=== PATIENT | female | born 1985 | race Caucasian/White ===

== ENCOUNTER 2017-04-07 20:10 | Inpatient (IN) | payer OTHER ==
[2017-04-07 22:02] VITALS: BMI 39.6
[2017-04-07] MEDS ORDERED: DINOPROSTONE 10 MG VAGINAL SUPPOSITORY VG ONE (22:18)
[2017-04-07] MEDS ORDERED: PROMETHAZINE HCL 25 MG/1 ML VIAL IVPUSH ONE (22:18)
[2017-04-07] MEDS ORDERED: BUTORPHANOL TARTRATE 1 MG/ML VIAL IVPB ONE (22:18)
--- NOTE | 2017-04-07 22:18 | HP ---
Admitting History and Physical - Admission Chief Complaint: postdates induction History of Present Illness: 31 y/o primip at 40 plus weeks, incuction. Pt had a sono on wednesday with efw at 4300 grams. 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: No: Alzheimer's, CVA, Dementia, Migraine, Multiple Sclerosis, Peripheral Neuropathy, Parkinson's, Seizure, Syncope, TIA, Vertigo, Other Cardiovascular: No: AFIB, Aneurysm, Aortic Insufficiency, Aortic Stenosis, CAD, CHF, Deep Vein Thrombosis, HTN, Hyperlipdemia, [place], Mitral Insufficiency, Mitral Stenosis, Murmur, Pulmonary Hypertension, Other Pulmonary: No: Asthma, Bronchitis, Cancer, COPD, O2 Dependent, Pneumonia, Previously Intubated, Pulmonary Embolus, Pulmonary Fibrosis, Sleep Apnea, Other Gastrointestinal: No: Ascites, Cancer, Constipation, Crohn's Disease, Diverticulitis, Diverticulosis, Esophageal Varices, Gastritis, GERD, GI Bleed, Hemorrhoids, Hiatal Hernia, Inflamatory Bowel Disease, Irritable Bowel Disease, Pancreatitis, Peptic Ulcer Disease, Ulcerative Colitis, Other Hepatobiliary: No: Cirrhosis, Cholelithiasis, Cholecystitis, Choledocholithiasis , Hepatitis A, Hepatitis B, Hepatitis C, Other Renal/: No: Renal Failure, Renal Inusuff, BPH, Cancer, Hematuria, Hemodialysis , Neurogenic Bladder, Renal Calculi, UTI, Other Reproductive: No: Ectopic , Endometriosis, Fibroids, PID, Polycystic Ovary Syndrome, Postmenopausal, Other ...: 2 ...Para: 0 Infectious Disease: No: AIDS, C-Diff, Herpes Zoster, HIV, MRSA, STD's, Tuberculosis, VREF, Other Psych: No: Addictions, Anxiety, Bipolar, Depression, Panic, Psychosis, Schizophrenia, Other Rheumatology: No: Fibromyalgia, Gout, Lupus, Rheumatoid Arthritis, Sarcoidosis, Vasculitis, Other Dermatology: No: Basal Cell, Cellulitis, Eczema, Melanoma, Psoriasis, Squamous Cell, Other - Past Surgical History Past Surgical History: No: None, AAA Repair, AICD, Amputation, Appendectomy, Arthrosocopy, AV Fistula/Graft, Bariatric Surgery, Breast Biopsy, Bypass, CABG, Carotid Endarterectomy, Cataract Removal, Cholecystectomy, Colectomy, Colonoscopy, Colostomy, Craniotomy, , Cystectomy, Hernia Repair, Hysterectomy, Ileal Conduit, Ileosotomy, Joint Replacement, Kidney Transplant, Laminectomy, Liver Transplant, Mastectomy, Nephrectomy, Oopherectomy, Orchiectomy, Permanent Pacemaker, Prostatectomy, Splenectomy, Stent, Thoracotomy , TURP, Tonsillectomy, Tubal Ligation, Upper Endoscopy, Valve Replacement, Vasectomy, Vein Stripping/Ligation - Alcohol/Substance Use Hx Alcohol Use: No Review of Systems - Review of Systems Constitutional: reports: No Symptoms Eyes: reports: No Symptoms HENT: reports: No Symptoms Neck: reports: No Symptoms Cardiovascular: reports: No Symptoms Respiratory: reports: No Symptoms Gastrointestinal: reports: No Symptoms, Dysphagia Genitourinary: reports: No Symptoms Breasts: reports: No Symptoms Reported Musculoskeletal: reports: No Symptoms Integumentary: reports: No Symptoms Neurological: reports: No Symptoms Physical Examination Constitutional: Yes: Well Nourished Eyes: Yes: WNL HENT: Yes: WNL Neck: Yes: WNL Cardiovascular: Yes: WNL Respiratory: Yes: WNL Gastrointestinal: Yes: WNL ...Rectal Exam: Yes: WNL Renal/: Yes: WNL (exam is 1cm, -3, 50) Breast(s): Yes: WNL Musculoskeletal: Yes: WNL Extremities: Yes: WNL Integumentary: Yes: WNL Assessment/Plan as asdbove admit labs conseled on CS cervidiil
[2017-04-07] MEDS ORDERED: DEXTROSE 5%-LACTATED RINGERS 1,000 ML IV SCH (22:30)
--- NOTE | 2017-04-07 22:32 | PN ---
Progress Note (short form) - Note Progress Note: cerv placed at 1020p post fornix cat1 150
[2017-04-07 23:03] LABS: BASOPHIL 0.4 % (0-2.0); EOSINOPHIL 0.3 % (0-4.5); MCH 27.4 pg (25.7-33.7); MCHC 32.8 g/dl (32.0-36.0); MEAN CELL VOLUME 83.6 fl (80-96); MEAN PLT VOLUME 10.2 fl (7.5-11.1); PLATELET COUNT 154 K/MM3 (134-434); RDW 14.7 % (11.6-15.6); WHITE BLOOD COUNT 8.1 K/mm3 (4.0-10.0)
[2017-04-07 23:16] LABS: INR 1.02 (0.82-1.09); PROTHROMBIN TIME (PATIENT) 11.2 SEC (9.98-11.88)
[2017-04-07 23:18] LABS: ACTIVATED PTT 29.2 SECONDS (26.9-34.4)
[2017-04-07 23:37] LABS: CALCIUM 8.4 mg/dL (8.5-10.1); COCKROFT - GAULT 266.05; CREATININE 0.5 mg/dL (0.55-1.02)
--- NOTE | 2017-04-08 06:42 | PN ---
Progress Note (short form) - Note Progress Note: still with cervidil, cat one tracing, some crampiness, no lof
[2017-04-08] MEDS ORDERED: SODIUM PHOSPHATE/NA BIPHOS 133 ML ENEMA PR ONE (08:36)
--- NOTE | 2017-04-08 08:48 | PN ---
Progress Note (short form) - Note Progress Note: 31 yrs , 40.5 weeks s/p cervidil induction started by Dr Medeiros at 10.20 pm 04/07/17 FHR tracing cat-1 uc irrehular 8.30 am exam 2 cm/100% /Vx /-2/ pelvis adequate .EFW 4300gm. Selected Entries 04/08/17 08:00 Temperature 98.0 F Pulse Rate 90 Blood Pressure 122/60 Laboratory Tests 04/07/17 04/07/17 04/07/17 22:45 22:45 22:45 WBC 8.1 Hgb 10.6 L Hct 32.5 Plt Count 154 Neutrophils % 70.0 Lymphocytes % 22.7 Monocytes % 6.6 INR 1.02 PTT (Actin FS) 29.2 Sodium 141 Potassium 3.9 Chloride 106 Carbon Dioxide 20 L Creatinine 0.5 L Random Glucose 98 Blood Type 04/07/17 22:45 WBC Hgb Hct Plt Count Neutrophils % Lymphocytes % Monocytes % INR PTT (Actin FS) Sodium Potassium Chloride Carbon Dioxide Creatinine Random Glucose Blood Type A POSITIVE Plan fleets enema, shower remove cervidil at 10.20 am . stadol for labor analgesia ct trial of labor for vaginal delivery
--- NOTE | 2017-04-08 10:40 | PN ---
Progress Note, Labor Vaginal Exam #1 Labor Exam Date: 04/08/17 Labor Exam Time: 10:30 Heart Rate (range): 130-140 Dilatation: 4-5 Effacement (%): 100 Amniotic Membrane Status: Intact (not sure) Presentation: Vertex/Position Station: -2 Remarks: fhr cat-1. uc are mild, irregular. stadol 2 mg iv given at 10.00am cervidil fell off as per pt at 10.00Am Selected Entries 04/08/17 10:00 Temperature 98.0 F Pulse Rate 89 Blood Pressure 121/67 Vaginal Exam #2 Labor Exam Date: 04/08/17 Labor Exam Time: 11:50 Heart Rate (range): 130-140 Dilatation: 6-7 Effacement (%): 100 Amniotic Membrane Status: Ruptured Presentation: Vertex/Position (caput) Station: -2 (-2/-1) Remarks: uc are irregular , mild q 2-4 min , fhr cat-1. pt c/o pressure all the time pitocin started at 11.30 am plan epidural Selected Entries 04/08/17 11:00 Pulse Rate 86 Blood Pressure 123/60 Vaginal Exam #3 Labor Exam Date: 04/08/17 Labor Exam Time: 14:00 Heart Rate (range): 124 Dilatation: 7 Effacement (%): 100 Amniotic Membrane Status: Ruptured Presentation: Vertex/Position (caput is noted, ant lip cx is slightly edematous) Station: -1 Remarks: UC q 2-3 min. FHR cat-1 . pt c/o pressure pain plan epidural top off Selected Entries 04/08/17 14:15 Pulse Rate 82 Blood Pressure 128/78 Vaginal Exam #4 Labor Exam Date: 04/08/17 Labor Exam Time: 16:25 Heart Rate (range): 120-130 Dilatation: 7 Effacement (%): 90 Amniotic Membrane Status: Ruptured Presentation: Vertex/Position Station: -1 Remarks: FHR CAT-1 UC Q 2-4 min mild scalp electrode application Selected Entries 04/08/17 16:00 Pulse Rate 60 Blood Pressure 111/54 Vaginal Exam #5 Labor Exam Date: 04/08/17 Labor Exam Time: 18:30 Heart Rate (range): 140-160 Dilatation: 8 Effacement (%): 100 Amniotic Membrane Status: Ruptured Presentation: Vertex/Position (caput, cx is partially edematous) Station: +1 Remarks: fhr cat-1 UC 2-4 min irregular requests for Top off Selected Entries 04/08/17 04/08/17 04/08/17 18:00 18:15 18:37 Temperature 98.4 F Pulse Rate 82 78 Blood Pressure 124/81 126/72 Vaginal Exam #6 Labor Exam Date: 04/08/17 Labor Exam Time: 20:00 Heart Rate (range): 150 Dilatation: 8 Effacement (%): 100 Amniotic Membrane Status: Ruptured Presentation: Vertex/Position (caput, cx more edematous) Station: +1 Remarks: uc 2-4 min FHR at 740 pm & 7.50 pm late decelration are noted , FHR cat-2 cx is still 8 cm dilatation . Between 2.00pm & 8. pm she kramer dilated from 7 cm to 8cm only , cx is becoming edematous caput is large Imp : Failure to progress in labor, 41 weeks, suspected Macrosomia Plan : stop pitocin delivery by primary C/section
[2017-04-08] MEDS ORDERED: OXYTOCIN 15 UNITS/ LR 250 ML 250 ML IVPB SCH (10:45)
[2017-04-08] MEDS ORDERED: ELECTROLYTE-148 SOLN 1,000 ML IV SCH ×2 (12:00→22:30)
[2017-04-08] MEDS ORDERED: oxyCODONE HCL 5 MG TABLET PO PRN (12:00)
[2017-04-08] MEDS ORDERED: FENTANYL/BUPIVACAINE/NS/PF - PCEA - 50 ML DISP.SYRIN EP SCH (19:00)
[2017-04-08] MEDS ORDERED: CITRIC ACID/SODIUM CITRATE 30 ML UNIT-DOSE CUP PO ONE (20:21)
[2017-04-08] MEDS ORDERED: ELECTROLYTE-148 SOLN 500 ML IV ONE (21:00)
[2017-04-08] MEDS ORDERED: IBUPROFEN 800 MG/8 ML IJ IVPB PRN ×2 (21:55→22:08)
[2017-04-08] MEDS ORDERED: METHYLERGONOVINE MALEATE 0.2 MG/1 ML AMP IM PRN (21:55)
[2017-04-08] MEDS ORDERED: D5W-LR W/ 20 UNITS OXYTOCIN 1,000 ML IV SCH (22:00)
[2017-04-08] MEDS ORDERED: ONDANSETRON 4 MG/2 ML VIAL IVPUSH PRN (22:09)
[2017-04-08 22:25] LABS: ARTERIAL BLD GAS O2 SATURATION 12.9 % (90-98.9); ARTERIAL BLOOD GAS BASE EXCESS -3.4 meq/l (-2-2); ARTERIAL BLOOD GAS HCO3 23.2 meq/L (22-26)
[2017-04-08 22:28] LABS: VENOUS PH 7.35 (7.32-7.42)
--- NOTE | 2017-04-08 22:28 | OP ---
Operative Note - Note: Operative Date: 04/08/17 Pre-Operative Diagnosis: 41 weeks, failure to progressin labor, Macrosomia Operation: Primary LFTC/Section Findings: 04/08/17 baby boy, at 9.16pm, 9/9, Op position, Wt 10'6" Kiwi vaccum cup applied to cephalic to pull baby out uterine culture taken Both tubes & ovaries normal Dr Ramirez present in the room Surgeon: Angeli Allred Nipping Machine Operator: Trevor Franco Anesthesiologist/SUGAR CONTROLLER: Kostas Vasques Anesthesia: Epidural Specimens Removed: cord segment for blood gas. cord blood. placenta. utrine culture Estimated Blood Loss (mls): 1,000 Drains, Volume Out (mls): 150 Fluid Volume Replaced (mls): 1,600 (2 gm IV Ancef prior to incision ) Operative Report Dictated: Yes
[2017-04-08 22:30] LABS: ART PUNCT SITE OTHER; ARTERIAL BLOOD GAS PO2 12.7 mmHg (80-100); LPM/O2% 21%; PT. ON O2? no; TYPE OF O2 room air
--- NOTE | 2017-04-08 22:41 | PN ---
Delivery - Delivery Section: Primary, Low Flap Transverse (indication: 41 weeks, failure to progress in Labor , macrosomia) Type of Anesthesia: Epidural EBL (cc): 1,000 (nelson output 150 ml, jeffrey color ) Delivery, Single - Stages of Labor Date 1st Stage Initiatied: 04/08/17 Time 1st Stage Initiated: 08:30 Date of Delivery: 04/08/17 Time of Delivery: 21:16 Date Placenta Delivered: 04/08/17 Time Placenta Delivered: 21:18 Placenta: Yes: Manual Removal (uterine culture taken), Uterine Exploration - Condition of Housekeeping Director/Filing Clerk Present: Yes Name: Dalton Ramirez Gender: Male Position: OP (kiwi vaccum cup applied to assist delivery) Total Hours ROM (Hrs/Mins): 9hr-38 min - 1 Minute Total Score: 9 5 Minutes Total Score: 9 - [place] Feeding Plan Initial Plan: Elected not to breastfeed exclusively throughout hospitalization Remarks - Remarks Remarks: 31 yrs , 41 weeks, admitted by Dr Medeiros on 04/07/17 cervidil induction started . sono 4300 gm efw GBS neg . care at [address] [place] [address] . 04/08/17 Pitocin induction started IVstadol followed by epidural labor analgesia was started Protracted active phase of labor , failure to progress in labor . intraop course uneventful 2 gm Iv ancef prior to incision was given
--- NOTE | 2017-04-09 01:40 | OP ---
DATE OF OPERATION: 04/08/2017 PREOPERATIVE DIAGNOSIS: 41 week , failure to progress in labor, macrosomia. POSTOPERATIVE DIAGNOSIS: 41 week , failure to progress in labor, macrosomia. PROCEDURE: Primary low transverse section. SURGEON: Angeli Allred MD PUMP SERVICER: Trevor Franco MD ANESTHESIOLOGIST: Kostas Vasques MD ANESTHESIA: Epidural. FINDINGS: This is a 31-year-old, 2, para 0-0-1-0, who was admitted on April 07 Cevidil induction followed by Pitocin induction was done. Patient progressed to 8 cm, but she had dilated from 7 to 8 cm in 6 hours. Station was +1 with a large caput. Cervix was getting edematous, so protracted active phase of labor was diagnosed and also late decelerations were noted. It was decided to deliver the patient by section. Estimated weight by ultrasound was 4300 g. PROCEDURE: Patient is taken to the operating room table were epidural anesthesia was reinforced and the patient was placed in the supine position. Cary catheter was inserted. SCD stockings were inflated. The abdomen was prepped with DuraPrep and draped in the usual manner. Level of anesthesia was checked and Pfannenstiel incision was made. The skin and subcutaneous tissues as well as the anterior rectus sheath were incised transversely. Bleeding points were clamped and cauterized. The lower part of the peritoneum was opened vertically. The lower flap of the peritoneum was identified and it was incised transversely. The lower uterine segment was isolated and the bladder was pushed down. The baby was delivered at 9:16 p.m. with some difficulty in getting the baby out. A Kiwi vacuum cup was applied. With suction, the baby's head was delivered out of the incision and the rest of the body was delivered. The baby was in the OP position. Baby Boy, 9/9, Wt 10'6" Cord was clamped and cut. Cord blood was collected. Also, the cord segment was sent for the blood gasses. Uterine culture was taken. Placenta was removed completely with membranes. Uterine cavity was cleaned. The uterine incision was closed with 0 Biosyn suture, continuous locking sutures were taken. The 2nd layer of the uterine closure was done with continuous intermittently locking suture with Biosyn 0 suture. Hemostasis was checked. The bladder peritoneum was also closed with Biosyn 0 suture. Hemostasis was verified once again. Both the tubes and ovaries were normal. Irrigation was done. The sponge, instrument, and needle counts were correct. The closure of the abdomen was done. The peritoneum was closed with Vicryl suture. The muscles were reapproximated together with 0 Vicryl sutures. Interrupted sutures were taken below the rectus sheath. Hemostasis was checked and the rectus sheath was closed with 0 Vicryl continuous sutures. These were checked and the subcutaneous tissues were approximated with Biosyn 0 suture. The skin was approximated with ayleen. Pressure dressing was given. Blood clots were removed from the vagina. Betadine was used in the vagina. Patient tolerated the procedure well and she was transferred to the recovery room in stable condition. Estimated blood loss was 1000 mL. Intraoperative urine output was 150 mL and jeffrey colored. She received 2 g of IV Ancef prior to the incision. Warehouse Distribution Associate Dr Ramirez was present in the room. Elda DE LA [id number] MTDD
[2017-04-09] MEDS: CEFAZOLIN (PRE-DOCKED) 50 ML IVPB SCH ×3 (02:42→18:14)
--- NOTE | 2017-04-09 08:12 | PN ---
Progress Note (short form) - Note Progress Note: pod 1 doing well, no c/o , CBC, BMP 04/07/17 22:45 04/07/17 22:45 Last Vital Signs Temp Pulse Resp BP Pulse Ox 98.1 F 112 H 18 117/65 99 04/09/17 06:34 04/09/17 06:34 04/09/17 06:34 04/09/17 06:34 04/08/17 23:15 abdomen soft, no distension, no cva incision dry, clean no excess vaginal bleeding impression pod 1, mild tachycardia , r/o anemia, r/o sepsis plan cbc , ambualte, cont iv hydration , revaluate
[2017-04-09 08:46] LABS: BASOPHIL 0.3 % (0-2.0); MCH 27.4 pg (25.7-33.7); MCHC 32.5 g/dl (32.0-36.0); MEAN CELL VOLUME 84.3 fl (80-96); MEAN PLT VOLUME 9.7 fl (7.5-11.1); NEUTROPHILS 82.1 % (42.8-82.8); PLATELET COUNT 138 K/MM3 (134-434); RDW 14.4 % (11.6-15.6); WHITE BLOOD COUNT 14.2 K/mm3 (4.0-10.0)
[2017-04-09] MEDS: ENOXAPARIN NA (PORCINE) 40 MG/0.4 ML DISP.SYRIN SQ SCH (10:27)
[2017-04-09] MEDS: IBUPROFEN 600 MG TABLET (FP) PO PRN ×2 (12:22→21:17)
[2017-04-09] MEDS: SIMETHICONE 80 MG TAB.CHEW (FP) PO PRN ×2 (12:22→21:16)
[2017-04-09] MEDS: ACETAMINOPHEN 325 MG TABLET (FP) PO PRN ×2 (12:23→21:16)
[2017-04-09] MEDS: SENNOSIDES/DOCUSATE COMBO (SENNA PLUS) TABLET (UD) PO PRN (21:15)
[2017-04-09] MEDS: FERROUS SO4 325 MG TABLET (FP) PO SCH (21:19)
[2017-04-09] MEDS ORDERED: BISACODYL 10 MG SUPP.RECT RC PRN (21:56)
[2017-04-10] MEDS: SIMETHICONE 80 MG TAB.CHEW (FP) PO PRN ×3 (10:14→23:40)
[2017-04-10] MEDS: IBUPROFEN 600 MG TABLET (FP) PO PRN ×3 (10:14→23:40)
[2017-04-10] MEDS: FERROUS SO4 325 MG TABLET (FP) PO SCH ×2 (10:14→21:39)
[2017-04-10] MEDS: PRENATAL VITAMINS W/ FOLIC ACID TABLET (FP) PO SCH (10:14)
[2017-04-10] MEDS: ACETAMINOPHEN 325 MG TABLET (FP) PO PRN (10:15)
[2017-04-10] MEDS: ENOXAPARIN NA (PORCINE) 40 MG/0.4 ML DISP.SYRIN SQ SCH (10:16)
--- NOTE | 2017-04-10 13:53 | PN ---
Post Progress Note - Subjective Subjective: no complains Post Day: 2 Type of Delivery: Primary C/S Vital Signs: Vital Signs Temperature 98.0 F 04/10/17 09:47 Pulse Rate 96 H 04/10/17 09:47 Respiratory Rate 18 04/10/17 09:47 Blood Pressure 121/80 04/10/17 09:47 O2 Sat by Pulse Oximetry (%) 99 04/08/17 23:15 Breast Exam: Yes: Soft. No: Engorged Uterus: Yes: Fundus Firm, Fundus below umbilicus, Non-tender Incision: Yes: Foster intact. No: Redness, Oozing Abdomen/GI: Yes: Abdomen soft, Passing flatus (bm not done ), Tolerating PO ( diet). No: Abdominal Distention, Tender Lochia: Yes: Rubra Lochia, amount: Moderate Extremities: Yes: Calves non-tender Perineum: Yes: Intact Activity: Ambulating - Labs Labs: CBC WBC 14.2 K/mm3 (4.0-10.0) H D 04/09/17 08:00 RBC 3.41 M/mm3 (3.60-5.2) L 04/09/17 08:00 Hgb 9.3 GM/dL (10.7-15.3) L D 04/09/17 08:00 Hct 28.8 % (32.4-45.2) L 04/09/17 08:00 MCV 84.3 fl (80-96) 04/09/17 08:00 MCHC 32.5 g/dl (32.0-36.0) 04/09/17 08:00 RDW 14.4 % (11.6-15.6) 04/09/17 08:00 Plt Count 138 K/MM3 (134-434) 04/09/17 08:00 MPV 9.7 fl (7.5-11.1) 04/09/17 08:00 Neutrophils % 82.1 % (42.8-82.8) 04/09/17 08:00 Lymphocytes % 10.9 % (8-40) D 04/09/17 08:00 Monocytes % 6.7 % (3.8-10.2) 04/09/17 08:00 Eosinophils % 0.0 % (0-4.5) D 04/09/17 08:00 Basophils % 0.3 % (0-2.0) 04/09/17 08:00 Assessment/Plan anemia plan ct po care encourage ambulation
[2017-04-10] MEDS: oxyCODONE HCL 5 MG TABLET PO PRN ×2 (16:52→23:41)
[2017-04-10] MEDS: SENNOSIDES/DOCUSATE COMBO (SENNA PLUS) TABLET (UD) PO PRN (21:39)
[2017-04-11 07:38] LABS: BASOPHIL 0.6 % (0-2.0); EOSINOPHIL 1.3 % (0-4.5); MCH 27.7 pg (25.7-33.7); MCHC 32.8 g/dl (32.0-36.0); MEAN CELL VOLUME 84.4 fl (80-96); MEAN PLT VOLUME 9.5 fl (7.5-11.1); NEUTROPHILS 66.3 % (42.8-82.8); PLATELET COUNT 156 K/MM3 (134-434); RDW 14.8 % (11.6-15.6); WHITE BLOOD COUNT 7.6 K/mm3 (4.0-10.0)
--- NOTE | 2017-04-11 07:51 | PN ---
Post Progress Note - Subjective Subjective: no complains except some tenderness at incision site Post Day: 3 Type of Delivery: Primary C/S Vital Signs: Vital Signs Temperature 98.2 F 04/10/17 22:20 Pulse Rate 100 H 04/10/17 22:20 Respiratory Rate 20 04/10/17 22:20 Blood Pressure 120/79 04/10/17 22:20 O2 Sat by Pulse Oximetry (%) 99 04/08/17 23:15 Breast Exam: Yes: Soft, Other (BF ). No: Engorged Uterus: Yes: Fundus Firm, Fundus below umbilicus, Non-tender Incision: Yes: Kiefer intact. No: Redness, Oozing Abdomen/GI: Yes: Abdomen soft, Passing flatus, Tolerating PO (diet). No: Abdominal Distention, Tender Lochia: Yes: Rubra Lochia, amount: Moderate Extremities: Yes: Calves non-tender Perineum: Yes: Intact Activity: Ambulating - Labs Labs: CBC WBC 7.6 K/mm3 (4.0-10.0) D 04/11/17 06:10 RBC 3.37 M/mm3 (3.60-5.2) L 04/11/17 06:10 Hgb 9.3 GM/dL (10.7-15.3) L 04/11/17 06:10 Hct 28.4 % (32.4-45.2) L 04/11/17 06:10 MCV 84.4 fl (80-96) 04/11/17 06:10 MCHC 32.8 g/dl (32.0-36.0) 04/11/17 06:10 RDW 14.8 % (11.6-15.6) 04/11/17 06:10 Plt Count 156 K/MM3 (134-434) 04/11/17 06:10 MPV 9.5 fl (7.5-11.1) 04/11/17 06:10 Neutrophils % 66.3 % (42.8-82.8) 04/11/17 06:10 Lymphocytes % 25.3 % (8-40) D 04/11/17 06:10 Monocytes % 6.5 % (3.8-10.2) 04/11/17 06:10 Eosinophils % 1.3 % (0-4.5) D 04/11/17 06:10 Basophils % 0.6 % (0-2.0) 04/11/17 06:10 Assessment/Plan post c/section day #[address] po care discharge tomorrow.
[2017-04-11] MEDS: ENOXAPARIN NA (PORCINE) 40 MG/0.4 ML DISP.SYRIN SQ SCH (09:55)
[2017-04-11] MEDS: FERROUS SO4 325 MG TABLET (FP) PO SCH ×2 (09:55→21:59)
[2017-04-11] MEDS: PRENATAL VITAMINS W/ FOLIC ACID TABLET (FP) PO SCH (09:55)
[2017-04-11] MEDS: IBUPROFEN 600 MG TABLET (FP) PO PRN ×2 (12:37→21:59)
[2017-04-11] MEDS: ACETAMINOPHEN 325 MG TABLET (FP) PO PRN (12:38)
[2017-04-11] MEDS: SIMETHICONE 80 MG TAB.CHEW (FP) PO PRN ×2 (12:39→21:59)
[2017-04-11] MEDS: SENNOSIDES/DOCUSATE COMBO (SENNA PLUS) TABLET (UD) PO PRN (21:59)
[2017-04-11] MEDS: oxyCODONE HCL 5 MG TABLET PO PRN (22:01)
--- NOTE | 2017-04-12 08:36 | DS ---
Physical Exam-MARINE METEOROLOGIST Vital Signs: Vital Signs Temperature 98.4 F 04/11/17 22:05 Pulse Rate 88 04/11/17 22:05 Respiratory Rate 20 04/11/17 22:05 Blood Pressure 134/88 04/11/17 22:05 O2 Sat by Pulse Oximetry (%) 99 04/08/17 23:15 Constitutional: Yes: Well Nourished, Obese, Pallor, Other (no complains) Eyes: Yes: WNL HENT: Yes: WNL Neck: Yes: WNL Cardiovascular: Yes: WNL Respiratory: Yes: WNL Gastrointestinal: Yes: WNL, Normal Bowel Sounds, Soft, Abdomen, Obese, Other ( bm done). No: Distention ....Post : Yes: Uterus firm, Uterus non-tender, Moderate lochia rubra (no odor) Breast(s): Yes: WNL (Bf) Extremities: Yes: WNL. No: Calf Tenderness Edema: No Integumentary: Yes: WNL Wound/Incision: Yes: Clean/Dry, Well Approximated, Steri Strips, Open to air. No: Draining, Reddened, Bleeding, Excoriated Neurological: Yes: WNL, Alert, Oriented ...Motor Strength: WNL Psychiatric: Yes: WNL Labs: CBC, BMP 04/11/17 06:10 04/07/17 22:45 Delivery - Delivery Section: Primary, Low Flap Transverse (indication: 41 weeks, failure to progress in Labor , macrosomia) Type of Anesthesia: Epidural Episiotomy/Laceration: None EBL (cc): 1,000 (nelson output 150 ml, jeffrey color ) Delivery, Single - Stages of Labor Date 1st Stage Initiatied: 04/08/17 Time 1st Stage Initiated: 08:30 Date of Delivery: 04/08/17 Time of Delivery: 21:16 Time Placenta Delivered: 21:18 Placenta: Yes: Manual Removal (uterine culture taken), Uterine Exploration - Condition of Infant Mounting Inspector/Site Acquisition Manager Present: Yes Name: Dalton Ramirez Gender: Male Weight: 10 lb 6 oz Position: OP (kiwi vaccum cup applied to assist delivery) Total Hours ROM (Hrs/Mins): 9hr-38 min - 1 Minute Total Score: 9 5 Minutes Total Score: 9 - Feeding Plan Initial Plan: Elected not to breastfeed exclusively throughout hospitalization Remarks - Remarks Remarks: 31 yrs , 41 weeks, admitted by Dr Medeiros on 04/07/17 cervidil induction started . sono 4300 gm efw GBS neg . care at , [facility] . 04/08/17 Pitocin induction started IVstadol followed by epidural labor analgesia was started Protracted active phase of labor , failure to progress in labor . intraop course uneventful 2 gm Iv ancef prior to incision was given . pos op course uneventful intrauterine culture strept, viridans, no need to give any more antibiotics pt is afebrile &asymptomatic, ut non tender wbc count down to 7000.. anemia counselled discharge today Discharge Summary Reason For Visit: CERV. INDUCTION Current Active Problems Anemia (Acute) Delivery by emergency section (Acute) Failed induction of labor (Acute) Failure to progress in first stage of labor (Acute) Macrosomia (Acute) Post term at 41 weeks gestation (Acute) Condition: Stable - Instructions Diet, Activity, Other Instructions: Post Instructions DIET: Continue good diet high in protein, calcium, and iron rich foods. Drink at least eight (8) glasses of water daily in addition to other fluids. ct Regular diet MEDICATIONS: Continue vitamins and iron as previously directed. Motrin and Tylenol may be taken for minor discomfort. ACTIVITY: Mild to moderate exercise may be started in two (2) weeks. Take frequent rest periods. Resume normal activity after six (6) week check up. WOUND CARE OF OPERATIVE SITE: Continue use of perineal bottle until vaginal discharge stops. Keep area clean. Shower daily. Keep abdominal wound dry. Report any drainage or redness to physician. Tub baths, tampons and douches are not permitted for [address] Breast feeding & or Bottle feeding BREAST CARE: (For those that are not breast feeding): If engorgement occurs: Wear tight fitting bra. Take Tylenol or Motrin for pain. Apply cold packs (ice in bags to each breast ) FAMILY PLANNING: There are many control alternatives to pursue and they should be discussed at your first office visit. You may resume sexual activity after your six (6) week check up. (Remember, breast feeding is not a contraceptive) NEXT PHYSICIAN APPOINTMENT: Be certain to call for a one (1) week appointment, unless otherwise directed. Wound check Call Clinic or got to Emergency Dept if you have any of the following: Heavy vaginal bleeding Painful urination Leg pain Unusual odor noted to vaginal bleeding High fever Red streaking noted on breast Referrals: Angeli Allred MD [Staff Physician] - Disposition: HOME - Home Medications Comprehensive Discharge Medication List: Ambulatory Orders Vitamins (Sjr) - 1 tab PO DAILY 04/08/17 Acetaminophen [Tylenol .Regular Strength -] 650 mg PO Q4H PRN #0 tablet Ferrous Sulfate [Feosol] 325 mg PO BID #60 tab 04/11/17 Ibuprofen [Motrin -] 600 mg PO Q4H PRN #30 tablet 04/11/17 Vitamins (Sjr) - 1 tab PO DAILY tablet 04/11/17
[2017-04-12 08:56] VITALS: BP 136/78; PULSE 86; TEMP 98
[2017-04-12] MEDS: IBUPROFEN 600 MG TABLET (FP) PO PRN (09:38)
[2017-04-12] MEDS: PRENATAL VITAMINS W/ FOLIC ACID TABLET (FP) PO SCH (09:38)
[2017-04-12] MEDS: ENOXAPARIN NA (PORCINE) 40 MG/0.4 ML DISP.SYRIN SQ SCH (09:38)
[2017-04-12] MEDS: FERROUS SO4 325 MG TABLET (FP) PO SCH (09:38)
[2017-04-12] MEDS: ACETAMINOPHEN 325 MG TABLET (FP) PO PRN (09:39)
--- NOTE | 2017-04-14 14:49 | PATH ---
Surgical Pathology Report Patient Name: LORY BILLINGS Med. Rec. #: [id number] /Age/Gender: 1985 (Age: 31) / F Account: [id number] Location: [facility] OBS/COLLAR STARCHER Taken: 04/08/2017 Received: 04/09/2017 Reported: 04/14/2017 Physicians: Jin Medeiros M.D. Specimen(s) Received PLACENTA Clinical History , SPAB x1, varicose veins Primary c/section Final Diagnosis PLACENTA, DELIVERY: FOCALLY DISRUPTED THIRD TRIMESTER PLACENTA WITH MILD INCREASE IN PREVILLOUS, PERIVILLOUS, AND PRECHORIONIC FIBRIN DEPOSITION, THREE VESSEL UMBILICAL CORD, AND UNREMARKABLE PLACENTAL MEMBRANES. Electronically Signed Eddie Melgoza M.D. Gross Description The specimen is received fresh, labeled "placenta" and is a 706 gram, 18.5 x 15.5 x 2.8 cm placenta with attached membranes and umbilical cord. The attached membranes are adair, translucent with focal opacities and insert marginally. The umbilical cord measures 11 cm in length and averages 1.2 cm in diameter. The cord inserts eccentrically, 4.5 cm to the nearest margin. No true knots or strictures are identified. Cut surface of the umbilical cord reveals 3 vessels. The surface is barrera-blue with fibrin deposition and appropriate caliber vessels. The maternal surface is red-brown with focal defects. Sectioning reveals red-brown, spongy parenchyma. No focal lesions are identified. Washing Machine Installer sections are submitted in three cassettes as follows: 1- membrane rolls and umbilical cord; 2-3- full thickness sections of placenta. /04/13/2017 [facility]04/13/2017
== END 2017-04-12 11:00 | disposition home or self-care (01) | DRG 540 ==
LOC: JLDR 20:10 → J3W 04-08 23:50
PROVIDERS: ADMIT Obstetrics & Gynecology; ATTEND Obstetrics & Gynecology
PROC: 3E0P7GC Introduction of Other Therapeutic Substance into Female Reproductive, Via Natural or Artificial Opening (ICD-10-PCS; principal; 2017-04-07)
PROC: 10D00Z1 Extraction of Products of Conception, Low, Open Approach (ICD-10-PCS; 2017-04-08)
DX: O48.0 Post-term pregnancy (principal); O62.0 Primary inadequate contractions; O36.63X0 Maternal care for excessive fetal growth, third trimester, not applicable or unspecified; O99.213 Obesity complicating pregnancy, third trimester; Z3A.41 41 weeks gestation of pregnancy; Z37.0 Single live birth; E66.9 Obesity, unspecified; Z68.39 Body mass index [BMI] 39.0-39.9, adult
CPT/HCPCS: 36415; 36600; 80048; 82803; 85025; 85610; 85730; 86593; 86850; 86900; 86901; 87070; 87205; 88307-TC; 94010

== ENCOUNTER 2021-01-17 06:00 | Inpatient (IN) | payer OTHER ==
[2021-01-17] MEDS: ELECTROLYTE-148 SOLN 1,000 ML IV SCH (06:30)
[2021-01-17 06:59] VITALS: BMI 40.9
[2021-01-17] MEDS ORDERED: CITRIC ACID/SODIUM CITRATE 30 ML UNIT-DOSE CUP PO ONE (07:15)
[2021-01-17] MEDS ORDERED: morphine SULFATE/PF 0.5 MG/ML (2cc Syringe - QUVA) ONE (08:05)
[2021-01-17] MEDS ORDERED: PROPOFOL 20 ML ONE (08:06)
[2021-01-17] MEDS ORDERED: SUCCINYLCHOLINE CHLORIDE 200 MG/10 ML SYRINGE ONE (08:07)
[2021-01-17] MEDS ORDERED: ePHEDrine SULFATE 50 MG/1 ML AMPULE ONE (08:33)
[2021-01-17] MEDS ORDERED: OXYTOCIN 10 UNITS/ML VIAL ONE (08:49)
[2021-01-17] MEDS ORDERED: morphine SULFATE/PF 0.5 MG/ML (2cc Syringe - QUVA) SPIN ONE (09:04)
[2021-01-17] MEDS ORDERED: ONDANSETRON 4 MG/2 ML VIAL IVPUSH PRN (09:04)
[2021-01-17] MEDS ORDERED: OXYTOCIN 20 UNITS in 0.9% NS 20 UNIT/1,000 ML INFUS.BAG IV ONE ×2 (09:20→11:17)
[2021-01-17] MEDS ORDERED: WITCH HAZEL 50% (TUCKS) 40 PAD/JAR PAD TP PRN (09:57)
[2021-01-17] MEDS ORDERED: oxyCODONE HCL 5 MG TABLET PO PRN ×2 (09:57)
[2021-01-17] MEDS ORDERED: METHYLERGONOVINE MALEATE 0.2 MG/1 ML AMP IM PRN (09:57)
[2021-01-17] MEDS ORDERED: BENZOCAINE 28 GM HEMORRHOIDAL OINTMENT RC PRN (09:57)
[2021-01-17] MEDS ORDERED: BENZOCAINE 20% 57 GM BOTTLE TP PRN (09:57)
[2021-01-17] MEDS ORDERED: SIMETHICONE 80 MG TAB.CHEW (FP) PO PRN (09:57)
[2021-01-17] MEDS ORDERED: diphenhydrAMINE HCL 25 MG CAPSULE (FP) PO PRN (09:57)
[2021-01-17] MEDS ORDERED: IBUPROFEN 800 MG/8 ML IJ IVPB PRN (09:57)
[2021-01-17] MEDS ORDERED: OXYTOCIN 20 UNITS in 0.9% NS 20 UNIT/1,000 ML INFUS.BAG IV SCH (10:00)
[2021-01-17 10:14] LABS: CORD HCO3 26.2 mmHg (20-29); CORD PCO2 87.3 mmHg (30-78); CORD pH 7.095 (7.14-7.44)
[2021-01-17 10:15] LABS: CORD BASE EXCESS -4.5 mmol/L (0-2); CORD HCO3 22.3 mmHg (20-29); CORD PCO2 47.2 mmHg (30-78); CORD pH 7.293 (7.14-7.44)
[2021-01-17] MEDS ORDERED: CEFAZOLIN 1 GM/D5W 1 GM/50 ML BAG IVPB SCH (10:45)
[2021-01-17] MEDS: CEFAZOLIN 1 GM/D5W 1 GM/50 ML BAG IVPB SCH (16:47)
[2021-01-17] MEDS: ACETAMINOPHEN 325 MG TABLET (FP) PO PRN (20:55)
[2021-01-17] MEDS: IBUPROFEN 600 MG TABLET (FP) PO PRN (20:56)
[2021-01-18] MEDS: CEFAZOLIN 1 GM/D5W 1 GM/50 ML BAG IVPB SCH (00:51)
[2021-01-18] MEDS: ELECTROLYTE-148 SOLN 1,000 ML IV SCH (07:25)
[2021-01-18 09:10] LABS: BASO % 0.6 % (0-2.0); EOS % 0.8 % (0-4.5); HEMATOCRIT 32.6 % (32.4-45.2); HEMOGLOBIN 11.2 GM/dL (10.7-15.3); LYMPH % 14.3 % (8-40); MCH 29.6 pg (25.7-33.7); MCHC 34.3 g/dl (32.0-36.0); MEAN CELL VOLUME 86.4 fl (80-96); MEAN PLT VOLUME 9.7 fl (7.5-11.1); MONO % 5.5 % (3.8-10.2); NEUT % 78.8 % (42.8-82.8); PLATELET COUNT 170 K/MM3 (134-434); RBC 3.78 M/mm3 (3.60-5.2); WHITE BLOOD COUNT 9.7 K/mm3 (4.0-10.0)
[2021-01-18] MEDS: ENOXAPARIN NA (PORCINE) 40 MG/0.4 ML DISP.SYRIN SQ SCH (09:38)
[2021-01-18] MEDS ORDERED: BISACODYL 10 MG SUPP.RECT PR PRN (09:58)
[2021-01-18] MEDS: IBUPROFEN 600 MG TABLET (FP) PO PRN ×2 (12:09→18:33)
[2021-01-18] MEDS: ACETAMINOPHEN 325 MG TABLET (FP) PO PRN ×2 (12:10→18:34)
[2021-01-18] MEDS: DEXTROSE 5%-LACTATED RINGERS 1,000 ML IV SCH (21:28)
[2021-01-19] MEDS: IBUPROFEN 600 MG TABLET (FP) PO PRN ×3 (03:07→13:08)
[2021-01-19] MEDS: ACETAMINOPHEN 325 MG TABLET (FP) PO PRN ×3 (03:08→13:08)
[2021-01-19] MEDS: ENOXAPARIN NA (PORCINE) 40 MG/0.4 ML DISP.SYRIN SQ SCH (09:09)
[2021-01-19 09:28] VITALS: BP 111/74; PULSE 94; TEMP 98.3
[2021-01-19] MEDS ORDERED: SENNOSIDES/DOCUSATE COMBO (SENNA PLUS) TABLET (UD) PO PRN (22:00)
== END 2021-01-19 14:00 | disposition home or self-care (01) | DRG 540 ==
LOC: JLDR 06:00 → J3W 11:30
PROVIDERS: ADMIT Obstetrics & Gynecology; ATTEND Obstetrics & Gynecology
PROC: 10D00Z1 Extraction of Products of Conception, Low, Open Approach (ICD-10-PCS; principal; 2021-01-17)
DX: O34.219 Maternal care for unspecified type scar from previous cesarean delivery (principal); O69.81X0 Labor and delivery complicated by cord around neck, without compression, not applicable or unspecified; Z3A.39 39 weeks gestation of pregnancy; Z37.0 Single live birth; Z87.59 Personal history of other complications of pregnancy, childbirth and the puerperium; Z86.59 Personal history of other mental and behavioral disorders
CPT/HCPCS: 36415; 36600; 82803; 85025; 88307-TC